=== PATIENT | female | born 1980 | race Caucasian/White ===

== ENCOUNTER 2017-01-22 09:13 | Emergency (ER) | payer OTHER ==
[~2017-01-22] VITALS: Ht 170.2 cm; Wt 112.8 kg
[~2017-01-22 09:13] MED LIST: BACTRIM,SEPT1 TABLET PO; BUTALB-APAP-CA1 EACH; Bactrim,Septra DS 80 PO; CARDIZEM SR120 MG; CYCLOBENZAPRINE 10 M; Cardizem CD,Cartia X PO; DAPSONE100 MG PO; DIAZEPAM2 MG PO; DILTIAZEM 24HR120 MG PO; Dapsone PO; FIORICET,ESG1 TABLET PO; FLEXERIL10 MG PO; Fioricet,Esgic,Repan PO; Flexeril PO; HYDROCODON-ACE1 EAC7 PO; INDERAL20 MG PO; INDERAL80 MG PO; Imitrex PO; MILLIPRED DP5 MG PO; OXYCONTIN10 MG PO; OxyCONTIN PO; PROMETHAZINE HC25 M1 PO; PROPRANOLOL HC160 MG; PROPRANOLOL HCL10 MG PO; TRAMADOL HCL50 MG; TRAMADOL HCL50 MG PO; ZANAFLEX4 M1 PO; predniSONE PO
[2017-01-22 10:02] LABS: ADD MIUA? YES; BILIRUBIN NEGATIVE; BLOOD NEGATIVE; COLOR YELLOW ((YELLOW)); GLUCOSE (STRIP) NEGATIVE; KETONES NEGATIVE; LEUKOCYTES NEGATIVE; NITRITE NEGATIVE; PROTEIN (STRIP) NEGATIVE; SPECIFIC GRAVITY 1.012 (1.000-1.030); UROBILINOGEN 0.2 MG/DL (0.2-1.0)
[2017-01-22 10:03] LABS: EOSINOPHIL (%) 1.2 % (0-5); EOSINOPHIL COUNT 0.1 K/uL (0-0.3); HEMATOCRIT 39.3 % (36.0-46.0); IMMATURE GRANULOCYTE (%) 0.2 % (0.0-0.7); IMMATURE GRANULOCYTE COUNT 0.2 K/uL; LYMPHOCYTE COUNT 2.8 K/uL (1.0-2.8); MCHC 34.4 G/DL (30.0-36.0); MCV 87.3 FL (83-99); MONOCYTE (%) 7.9 % (3-12); MONOCYTE COUNT 0.7 K/uL (0-0.8); NEUTROPHIL (%) 56.3 % (45-76); NEUTROPHIL COUNT 4.6 K/uL (1.8-6.4); PLATELET COUNT 196 K/uL (156-360); RBC DIS.WIDTH-CV 12.2 % (11.8-14.6); RBC DIS.WIDTH-SD 38.2 % (39-53); WHITE BLOOD COUNT 8.2 K/uL (4.1-10.2)
[2017-01-22 10:12] LABS: BACTERIA RARE /HPF; EPITHELIAL CELLS 1+ /HPF; MUCUS TRACE /LPF; RED BLOOD CELLS 0-5 /HPF (0-5); WHITE BLOOD CELLS 0-5 /HPF (0-5)
[2017-01-22 10:18] LABS: CHLORIDE 107 mEq/L (99-109); POTASSIUM 4.8 mEq/L (3.7-5.4); SODIUM 138 mEq/L (136-147)
[2017-01-22 10:21] LABS: GLUCOSE 98 mg/dL (70-99)
[2017-01-22 10:22] LABS: ANION GAP 10 MEQ/L (2-14)
[2017-01-22 10:23] LABS: TOTAL BILIRUBIN 0.3 mg/dL (0.0-1.0)
[2017-01-22 10:24] LABS: ALKALINE PHOSPHATASE 101 IU/L (3-129); GFR ESTIMATE (CALCULATED) > 59 mL/min/
[2017-01-22 10:25] LABS: UREA NITROGEN (BUN) 12 mg/dL (9-23)
[2017-01-22 10:28] LABS: LIPASE 11 U/L (1.0-51.0)
[2017-01-22] MEDS ORDERED: CARAFATE1 GM PO (11:49)
[2017-01-22] MEDS ORDERED: LORTAB 5-325 M1 EACH PO (11:49)
[2017-01-22] MEDS ORDERED: PRILOSEC OTC20 MG PO (11:49)
[2017-01-22] MEDS ORDERED: ZOFRAN ODT8 MG PO (11:49)
[2017-01-22 13:59] VITALS: BP 99/48
== END 2017-01-22 14:00 | disposition home or self-care (01) ==
LOC: EME 09:13
PROVIDERS: Emergency Medicine
DX: K29.70 Gastritis, unspecified, without bleeding (principal); J45.909 Unspecified asthma, uncomplicated; G89.29 Other chronic pain; M79.7 Fibromyalgia; I10 Essential (primary) hypertension; K21.9 Gastro-esophageal reflux disease without esophagitis
CPT/HCPCS: 74177; 80053; 81003; 83605; 83690; 85025; 99281; 99285; J1170; J2270; J2405; J7030; J7050; S0028